=== PATIENT | female | born 1950 | race Caucasian/White ===

== ENCOUNTER 2017-11-07 01:28 | Inpatient (IN) | payer MEDICARE ==
[~2017-11-07] VITALS: Ht 162.6 cm; Wt 51.3 kg
--- NOTE | 2017-11-07 02:15 | NUR ---
ADMISSION NOTES: ADMITTED A 67Y/O FEMALE FROM [facility]. PT IS ON 5150 HOLD FOR GD. PER HOLD, PATIENT CALLED 911 SAYING THAT CESARIO HAD CUT HIM WITH AN UNKNOWN OBJECT. PATIENT APPEARS TO SUFFER FROM UNDIAGNOSED MENTAL ILLNESS. PATIENT OFTEN BELIEVES SHE IS BEING WATCHED OR SPYED ON. PATIENT STARTED TO SPEAK ON DELUSIONAL TOPICS AND THEN CUT HIM IN THE ARM WITH UNKNOWN OBJECT. PATIENT ADMITTING DX. OF PSYCHOSIS AND MEDICAL DX. UTI, HYPOTHYROIDISM, MIGRAINES. UPON FACE TO FACE EVALUATION, PATIENT APPEARED ALERT AND ORIENTED X2-3, GAURDED, SUSPICIOUS, DISORGANIZED. NO SOB, NO ACUTE DISTRESS, BREATHING EVEN AND UNLABORED, DENIES PAIN AND DISCOMFORT, MRSA DONE, SKIN ASSESSMENT DONE, PICTURE TAKEN, PATIENT UNABLE TO SIGN PAPERWORK, BELONGINGS INSPECTED FOR CONTRABAND ITEMS. PUT IT IN A SAFE CABINET/LOCKER. NOTIFIED BOTH DOCTORS REGARDING THE ADMISSION. KEPT CLEAN, DRY AND COMFORTABLE, ALL NEEDS ATTENDED AND ANTICIPATED. WILL CONTINUE TO MONITOR [id number] FOR SAFETY AND BEHAVIOR.
[2017-11-07] MEDS ORDERED: MAG HYDROX/AL HYDROX/SIMETH 30 ML UDC PO PRN (02:30)
[2017-11-07] MEDS ORDERED: ZOLPIDEM TARTRATE 5 MG TABLET PO PRN (02:30)
[2017-11-07] MEDS ORDERED: ACETAMINOPHEN 325 MG TABLET PO PRN (02:30)
[2017-11-07] MEDS ORDERED: LORAZEPAM 0.5 MG TABLET PO PRN (02:30)
[2017-11-07 02:46] VITALS: BP 131/84
[2017-11-07] MEDS ORDERED: ALPR0.5T PO (06:01)
[2017-11-07] MEDS ORDERED: ATEN25TA PO (06:01)
[2017-11-07] MEDS ORDERED: TIZA4TAB4 PO (06:01)
[2017-11-07] MEDS ORDERED: TOPI100T PO (06:01)
[2017-11-07] MEDS ORDERED: BUPR200T2 PO (06:01)
[2017-11-07] MEDS ORDERED: LEVO50TA8 PO (06:01)
[2017-11-07] MEDS ORDERED: MELA3TAB PO (06:01)
[2017-11-07 07:55] VITALS: BP 143/74
--- NOTE | 2017-11-07 10:41 | NUR ---
RN NOTE: CALLED DR. DANIEL AND MADE HIM AWARE OF HIS ADMISSION AND TO RECONCILE MEDS.
--- NOTE | 2017-11-07 13:46 | NUR ---
RN NOTE: PATIENT STATED SHE HAS A HEADACHE. GAVE TYLENOL 650 MG PRN
[2017-11-07] MEDS: BUPROPION XL 150 MG TAB.ER.24 PO SCH (15:07)
--- NOTE | 2017-11-07 15:10 | NUR ---
RN NOTE: PATIENT DROPPED MEDS ON THE GROUND. HAVE TO PULL 2 MORE WELLBUTRIN.
[2017-11-07 15:31] VITALS: BP 112/77
[2017-11-07] MEDS: ALPRAZOLAM 0.25 MG TABLET PO PRN (19:31)
--- NOTE | 2017-11-07 19:31 | NUR ---
GPS RN NOTES: NOTED PATIENT VERY ANXIOUS, VITAL SIGNS ARE STABLE. XANAX 0.5MG PO GIVEN PRN ORDER. WILL CONTINUE TO MONITOR [id number] FOR SAFETY AND BEHAVIOR.
[2017-11-07 19:48] VITALS: BP 139/71
[2017-11-07] MEDS: QUETIAPINE FUMARATE 25 MG TABLET PO SCH (21:16)
[2017-11-07] MEDS: TIZANIDINE HCL 4 MG TABLET PO SCH (21:16)
[2017-11-07] MEDS: MAGNESIUM HYDROXIDE 30 ML UDC PO PRN (21:20)
--- NOTE | 2017-11-07 21:20 | NUR ---
GPS RN NOTES: PATIENT C/O DIFFICULTY HAVING BM, REQUESTED AND GIVEN MOM 30ML PO PRN ORDER, WILL CONTINUE TO MONITOR.
[2017-11-07] MEDS: ATENOLOL 25 MG TABLET PO SCH (21:22)
[2017-11-08] MEDS: ALPRAZOLAM 0.25 MG TABLET PO PRN ×2 (05:10→16:34)
--- NOTE | 2017-11-08 05:10 | NUR ---
GPS RN NOTES: NOTED PATIENT VERY ANXIOUS, PATIENT IS REQUESTING FOR XANAX, VITAL SIGNS ARE STABLE, XANAX 0.5MG PO GIVEN PRN ORDER. WILL CONTINUE TO MONITOR [id number] FOR SAFETY AND BEHAVIOR.
[2017-11-08] MEDS: LEVOTHYROXINE SODIUM 50 MCG TABLET PO SCH (07:30)
[2017-11-08 07:34] LABS: BASOPHILS % (AUTO) 0.6 % (0.0-2.0); EOSINOPHILS # (AUTO) 0.1 /CMM (0.0-0.7); EOSINOPHILS % (AUTO) 1.4 % (0.0-6.0); HEMATOCRIT 39 % (33-45); HEMOGLOBIN 13.3 g/dL (11.5-14.8); LYMPHOCYTES # (AUTO) 4.6 /CMM (0.8-4.8); LYMPHOCYTES % (AUTO) 54.7 % (20.0-44.0); MEAN CORPUSCULAR HEMOGLOBIN 31 PG (26.0-33.0); MEAN CORPUSCULAR HGB CONC 34 g/dl (31.0-36.0); MEAN CORPUSCULAR VOLUME 90 fL (82-100); MONOCYTES # (AUTO) 0.6 /CMM (0.1-1.30); MONOCYTES % (AUTO) 6.8 % (2.0-12.0); NEUTROPHILS # (AUTO) 3.1 /CMM (1.8-8.9); NEUTROPHILS % (AUTO) 36.5 % (43.0-81.0); PLATELET COUNT (AUTO) 304 /CMM (150-450); RDW COEFFICIENT OF VARIATION 14.3 (11.5-15.0); RED BLOOD CELL COUNT(AUTO) 4.34 MIL/uL (4.0-5.2); WHITE BLOOD COUNT (AUTO) 8.4 K/uL (4.3-11.0)
[2017-11-08 08:00] VITALS: BP 121/75
[2017-11-08 08:01] LABS: ALBUMIN 3.9 g/dL (3.4-5.0); BILIRUBIN,TOTAL 0.8 mg/dL (0.2-1.0); CALCIUM, SERUM 9.3 mg/dL (8.5-10.1); CREATININE 0.8 mg/dL (0.6-1.3); POTASSIUM 3.9 mmol/L (3.5-5.1); TOTAL PROTEIN, SERUM 7.5 g/dL (6.4-8.2)
[2017-11-08 08:03] LABS: CHOLESTEROL 222 mg/dL (<200); HDL CHOLESTEROL 107 mg/dL (40-60); LDL 113 mg/dL (0-99); TRIGLYCERIDES 54 mg/dL (30-150)
[2017-11-08] MEDS: BUPROPION XL 150 MG TAB.ER.24 PO SCH (09:21)
[2017-11-08 16:00] VITALS: BP 157/95
--- NOTE | 2017-11-08 16:36 | NUR ---
RN NOTE : MEDICATED WITH XANAX 0.5MG X1 FOR ANXIETY WILL CONTINUE TO MONITOR.
[2017-11-08 20:22] VITALS: BP 114/66
[2017-11-08] MEDS: ATENOLOL 25 MG TABLET PO SCH (21:17)
[2017-11-08] MEDS: QUETIAPINE FUMARATE 25 MG TABLET PO SCH (21:18)
[2017-11-08] MEDS: TIZANIDINE HCL 4 MG TABLET PO SCH (21:18)
[2017-11-09] MEDS: ALPRAZOLAM 0.25 MG TABLET PO PRN ×3 (03:06→12:50)
[2017-11-09] MEDS: LEVOTHYROXINE SODIUM 50 MCG TABLET PO SCH (07:02)
[2017-11-09 08:00] VITALS: BP 108/67
[2017-11-09] MEDS: BUPROPION XL 150 MG TAB.ER.24 PO SCH (08:02)
--- NOTE | 2017-11-09 09:21 | NUR ---
WOUND CARE CONSULT: PT PRESENTS WITH RT ARM ABRASION, PRESENT ON ADMISSION. RECOMMENDATIONS MADE FOR WOUND CARE. PT IS AMBULATORY AND CONTINENT. CURRENT SUSANNE SCORE IS 22. WILL SEE PRN. LIND IN AGREEMENT WITH PLAN OF CARE. Addendum: 11/09/17 at 0921 by KANWAL OWENS WNDNU Amended: Links added.
--- NOTE | 2017-11-09 11:00 | NUR ---
GPS/RN PATIENT CONTINUES TO BE INDECISIVE REGARDING WANTING TO SIGN OUT AMA. NO SIGNATURE AT THIS TIME AND IS STILL ON A VOLUNTARY STATUS.
--- NOTE | 2017-11-09 11:38 | NUR ---
Initial Discharge Plan: Pt resides at [address] [facility] [address] with her , Tang Monaco . Upon discharge, pt would like to return home. SW followed up with pts , Tang to confirm pts return. Per , pt will be discharging to [address] [facility] [address] once she is ready and stable as they are in the middle of a move. Husbands cell # . SW will follow up to ensure pt is safely and adequately discharged.
[2017-11-09] MEDS: BACITRACIN/POLYMYXIN B 15 GM TUBE TP SCH (11:42)
--- NOTE | 2017-11-09 12:51 | NUR ---
GPS/RN PATIENT IS ANXIOUS, AGITATED AND IRRITABLE. ADMINISTERED 0.F MG XANAX PER PATIENT REQUEST, WILL CONTINUE TO MONITOR.
--- NOTE | 2017-11-09 15:00 | NUR ---
GPS/RN PATIENT CONTINUES TO BE INDECISIVE REGARDING WANTING TO SIGN OUT AMA. SHE HAS CALLED HER MULTIPLE TIMES AND HE STATED THAT HE CAN NOT PICK HER UP TODAY AND WANTS HER TO STOP CALLING HIM. NO SIGNATURE AT THIS TIME AND IS STILL ON A VOLUNTARY STATUS.
[2017-11-09 16:00] VITALS: BP 131/87
--- NOTE | 2017-11-09 19:30 | NUR ---
GPS RN NOTE, RECEIVED PATIENT AWAKE AND IN BED, NO S/S OR COMPLAINTS OF PAIN AT THIS TIME. PATIENT IS DISPLAYING NO S/S OF APPARENT DISTRESS AT THIS TIME. PATIENT BREATHING IS UNLABORED WITH EQUAL RISE AND FALL OF THE CHEST. PATIENT IS ALERT AND ORIENTED X 3 ON ROOM AIR WITH A SPO2 OF 98%. PATIENT IS MEDICATION COMPLIANT, DISORGANIZED, ANXIOUS, PARANOID, AND NEEDS REORIENTATION. PATIENT DENIES SUICIDE IDEATIONS AND HOMICIDAL IDEATIONS AT THIS TIME. PATIENT ASSISTED WITH TURNING AND REPOSITIONING Q2HR AND PRN FOR COMFORT AND CIRCULATION. PATIENT HAS NO NEEDS AT THIS TIME. PATIENT EDUCATED ON THE USE OF THE CALL MEADOWS. PATIENT SIDE RAILS ARE UP X 2, BED IS LOCKED AND LOW, AND I WILL CONTINUE TO MONITOR THIS PATIENT Q 15 MIN WITH THE HELP OF STAFF.
[2017-11-09 20:03] VITALS: BP 136/62
[2017-11-09] MEDS: TIZANIDINE HCL 4 MG TABLET PO SCH (21:12)
[2017-11-09] MEDS: QUETIAPINE FUMARATE 25 MG TABLET PO SCH (21:12)
[2017-11-09] MEDS: ATENOLOL 25 MG TABLET PO SCH (21:13)
[2017-11-10] MEDS: ALPRAZOLAM 0.25 MG TABLET PO PRN ×2 (01:51→17:22)
--- NOTE | 2017-11-10 01:51 | NUR ---
GPS RN NOTE, PATIENT HAS A COMPLAINT OF FEELING ANXIOUS AND IS REQUESTING XANAX AT THIS TIME. PATIENT VITAL SIGNS ARE STABLE. GAVE XANAX 0.5MG PO BID PRN ORDERED. WILL REASSESS FOR ANXIETY AND I WILL CONTINUE TO MONITOR THIS PATIENT.
[2017-11-10 08:22] VITALS: BP 146/84
[2017-11-10] MEDS: LEVOTHYROXINE SODIUM 50 MCG TABLET PO SCH (08:24)
[2017-11-10] MEDS: BUPROPION XL 150 MG TAB.ER.24 PO SCH (08:24)
[2017-11-10] MEDS: BACITRACIN/POLYMYXIN B 15 GM TUBE TP SCH (08:25)
--- NOTE | 2017-11-10 11:29 | NUR ---
Discharge Planning: SW contacted pts , Tang cell # to clarify if he was picking pt up from the hospital on this date. According to pt, her is picking her up on this date. SW was unable to speak to pts however a message was left asking for a callback.
--- NOTE | 2017-11-10 11:30 | NUR ---
RN-CO: Patient is Voluntary status. Patient denied suicidal and homicidal ideation. Denied command hallucination. Denied auditory hallucination. In the morning patient wants to leave AMA. I advice her to wait for Dr Tinoco to see her face and she agreed. Dr Tinoco came , seen and talked to her, signed AMA form. Patient said that her will picked her up at 7:[address] Tinoco wrote a prescription for her and we will give it to her upon discharge. She denied pain and discomforts. No acute distress noted.
--- NOTE | 2017-11-10 15:06 | NUR ---
Discharge Planning: ALEXUS called patient's Tang on, both, his cell phone and on his home phone [phone]. ALEXUS provided her direct contact information int he voicemail and informed him that patient is discharging.
--- NOTE | 2017-11-10 15:48 | NUR ---
RN-CO: NOTIFIED DR FRANCIS THAT PATIENT'S WILL PICK HER UP AT 1900.
[2017-11-10 16:34] VITALS: BP 143/85
[2017-11-10] MEDS: MAGNESIUM HYDROXIDE 30 ML UDC PO PRN (17:22)
--- NOTE | 2017-11-10 17:22 | NUR ---
RN NOTE: PATIENT IS STRESSED OUT AND IS REALLY ANXIOUS. PATIENT WANTS HER PRN XANAX. XANAX GIVEN. SHE ALSO STATES SHE IS CONSTIPATED AND NEEDS MILK OF MAG. MILK OF MAG GIVEN.
[2017-11-10 20:34] VITALS: BP 134/90
--- NOTE | 2017-11-10 21:00 | NUR ---
GPS RN NOTE, SPOKE WITH PATIENT VIA TELEPHONE. 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 I MIGHT BE ABLE TO PICK HER TOMORROW DEPENDING HOW I'M FEELING ". PATIENT IS AGREEABLE TO STAYING AT THE HOSPITAL FOR ONE MORE NIGHT. PAGED DR FRANCIS AND INFORMED HIM OF MY FINDINGS. DR FRANCIS IS FINE WITH PATIENT STAYING HERE ON VOLUNTARY STATS. WILL CONTINUE TO MONITOR THIS PATIENT.
[2017-11-10] MEDS: QUETIAPINE FUMARATE 25 MG TABLET PO SCH (21:14)
[2017-11-10] MEDS: ATENOLOL 25 MG TABLET PO SCH (21:14)
[2017-11-10] MEDS: TIZANIDINE HCL 4 MG TABLET PO SCH (21:15)
[2017-11-11] MEDS: ALPRAZOLAM 0.25 MG TABLET PO PRN (05:33)
--- NOTE | 2017-11-11 05:34 | NUR ---
GPS/RN PATIENT C/O ANXIOUS, AGITATED AND IRRITABLE. ADMINISTERED 0.5 MG XANAX PER PATIENT REQUEST, WILL CONTINUE TO MONITOR.
[2017-11-11 07:48] VITALS: BP 132/62
[2017-11-11] MEDS: BUPROPION XL 150 MG TAB.ER.24 PO SCH (08:45)
[2017-11-11] MEDS: LEVOTHYROXINE SODIUM 50 MCG TABLET PO SCH (08:45)
--- NOTE | 2017-11-11 10:00 | NUR ---
RN-CO: DR Tinoco is aware that patient was not picked up last night by because of too much exhaustion from moving. Patient still focus on leaving the unit, denied suicidal and homicidal ideation. Denied auditory and visual hallucination.She denied pain and discomforts. 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
[2017-11-11] MEDS: BACITRACIN/POLYMYXIN B 15 GM TUBE TP SCH (10:05)
--- NOTE | 2017-11-11 17:00 | NUR ---
RN-CO: Patient signed, AMA, picked her up, prescriptions from DR Tinoco was explained, given. Client and verbalized understanding.All belongings including valuables was given back. Advised to see medical doctor and primary psychiatrist for follow up. Call 911 for emergency.
--- NOTE | 2017-11-11 17:32 | NUR ---
GPS/RN-NOTES PATIENT LEFT AMA TODAY. PATIENT DID NOT VERBALIZE SI/HI,DENIES VISUAL/AUDITORY HALLUCINATIONS AT THE TIME SHE LEFT THE UNIT. DR. FRANCIS AND SIVAKUMAR DANIEL MADE AWARE. 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 PATIENT LEFT THE UNIT IN STABLE CONDITION AMBULATORY WITH ALL HER BELONGINGS. ALSO PATIENT STRONGLY REFUSED BODY ASSESSMENT PRIOR TO LEAVING THE UNIT.
== END 2017-11-11 17:25 | disposition left against medical advice (07) | DRG 885 ==
LOC: GPS 01:28
PROVIDERS: ADMIT Psychiatry & Neurology Psychiatry; ATTEND Nurse Practitioner Acute Care
DX: F32.3 Major depressive disorder, single episode, severe with psychotic features (principal); F23 Brief psychotic disorder; E03.9 Hypothyroidism, unspecified; Z68.1 Body mass index [BMI] 19.9 or less, adult; F41.9 Anxiety disorder, unspecified; G43.909 Migraine, unspecified, not intractable, without status migrainosus; Z73.6 Limitation of activities due to disability; S50.811A Abrasion of right forearm, initial encounter; X58.XXXA Exposure to other specified factors, initial encounter; Y93.9 Activity, unspecified; Y92.009 Unspecified place in unspecified non-institutional (private) residence as the place of occurrence of the external cause; T50.995A Adverse effect of other drugs, medicaments and biological substances, initial encounter
CPT/HCPCS: 36415; 80053-TC; 80061-TC; 85025-TC; 87081-TC